=== PATIENT | female | born 1970 | race American Indian/Alaskan Native ===

== ENCOUNTER 2017-04-25 06:00 | Day surgery (SDC) | payer BC ==
--- NOTE | 2017-04-25 06:52 | Anesthesia Consultation ---
Anesthesia Consult and Med Hx Date of service: 04/25/17 - Pre-Operative Health Status Proposed Anesthetic Plan: General - Pulmonary Hx Smoking: No Hx Asthma: No - Cardiovascular System Hx Hypertension: No Hx Coronary Artery Disease: No - Central Nervous System Hx Psychiatric Problems: No - Gastrointestinal Hx Gastroesophageal Reflux Disease: No - Hematic Hx Anemia: No - Other Systems Hx Alcohol Use: Yes (OCCAS) Hx Substance Use: No Hx Cancer: No - Additional Comments Anesthesia Medical History Comments: hysterectomy
--- NOTE | 2017-04-25 06:52 | Anesthesia Day of Surgery ---
Anesthesia Day of Surgery - Day of Surgery Patient Examined: Yes Patient H&P Reviewed: Yes Patient is NPO: Yes
[2017-04-25] MEDS ORDERED: NACL BACTERIOSTATIC INFILTRATI ONE (06:54)
[2017-04-25] MEDS ORDERED: ANCEF/STERILE WATER 2 GM/20 ML IV NR (07:00)
[2017-04-25] MEDS ORDERED: ZOFRAN IV PRN (07:02)
[2017-04-25] MEDS ORDERED: PERCOCET 5/325 PO PRN (07:02)
[2017-04-25] MEDS ORDERED: DECADRON IV NR (07:02)
[2017-04-25 07:16] LABS: Hematocrit 37.2 % (30.3-42.9); Hemoglobin 12.4 gm/dl (10.1-14.3)
[2017-04-25] MEDS ORDERED: VERSED ONE (07:43)
[2017-04-25] MEDS ORDERED: DIPRIVAN 10 MG/ML IV ONE (07:43)
[2017-04-25] MEDS ORDERED: SUBLIMAZE ONE (07:44)
[2017-04-25] MEDS ORDERED: QUELICIN ONE (07:47)
[2017-04-25] MEDS ORDERED: ZEMURON IV ONE (07:47)
[2017-04-25] MEDS ORDERED: NACL 0.9% 1000 ML 1,000 ML IV SCH (08:00)
[2017-04-25] MEDS ORDERED: NEURONTIN PO NR (08:00)
[2017-04-25] MEDS ORDERED: PEPCID PO NR (08:00)
[2017-04-25] MEDS ORDERED: VERSED IV NR (08:00)
[2017-04-25] MEDS ORDERED: REGLAN ONE (08:55)
[2017-04-25] MEDS ORDERED: ZOFRAN ONE (08:55)
[2017-04-25] MEDS ORDERED: NEOSTIGMINE ONE (08:55)
[2017-04-25] MEDS ORDERED: ROBINUL ONE (08:55)
--- NOTE | 2017-04-25 09:02 | Post Anesthesia Evaluation ---
- Post Anesthesia Evaluation Patient Participated: Yes Airway Patent: Yes Stable Respiratory Function: Yes Nausea/Vomiting: No Temp > 96.8F: Yes Pain Manageable: Yes Adequeate Hydration: Yes Anesthesia Complications: No Block Receding Appropriately: Not Applicable Patient on Ventilator: No
[2017-04-25] MEDS: DILAUDID IV PRN ×2 (09:30→09:40)
[2017-04-25 10:27] VITALS: BP 116/76
--- NOTE | 2017-04-25 11:53 | Discharge Summary ---
Short Stay Discharge Plan Activity: other (Keep surgery site clean and dry; Bandage removal in 72hrs and may shower) Weight Bearing Status: Full Weight Bearing Diet: regular Wound: remove dressing (72hrs) Additional Instructions: FOLLOW INSTRUCTIONS GIVEN AT OFFICE PRIOR TO SURGERY. KEEP DRESSING DRY DIRECTED. MEDICATION DIRECTED. LAST DOSE OF PAIN MED AT HOSPITAL WAS DILAUDID AT 0940 AND PERCOCET AT 0945. CALL AND VERIFY APPOINTMENT FOR FOLLOWUP Follow up with: KETAN COTTO MD [Primary Care Provider] - 6 Weeks WORK,KAYLEY Holloway JR, MD [Staff Physician] - 7 Days Forms: [facility] [place] [facility]
--- NOTE | 2017-04-25 11:55 | Short Stay Summary ---
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 KEEP DRESSING DRY DIRECTED. MEDICATION DIRECTED. LAST DOSE OF PAIN MED AT HOSPITAL WAS DILAUDID AT 0940 AND PERCOCET AT 0945. CALL AND VERIFY APPOINTMENT FOR FOLLOWUP Follow up with: KAYLEY BARRAZA JR, MD [Staff Physician] - 7 Days KETAN COTTO MD [Primary Care Provider] - 6 Weeks Forms: [facility] [place] [facility]
--- NOTE | 2017-04-25 12:16 | Operative Report ---
PREOPERATIVE DIAGNOSIS: Benign neoplasm of left thigh. POSTOPERATIVE DIAGNOSIS: Benign neoplasm of left thigh. PROCEDURE: 1. Excision, benign neoplasm of left thigh greater than 4 cm. 2. Complex closure, left thigh, 7.5 cm. SURGEON: Avinash Sutherland MD DESCRIPTION OF PROCEDURE: The patient was brought to the operating room, placed on the table in supine position. Following administration of general anesthesia, the patient was placed into a prone position. The left thigh was prepped with Betadine solution, draped in usual sterile manner. A #15 blade scalpel was used to circumferentially incise skin surrounding and overlying the left thigh mass, deepened through subcutaneous fat using the electrocautery. Circumferential dissection was performed tumor with overlying skin was excised and sent to pathology as a specimen. Hemostasis controlled using electrocautery and closure was performed in layers using interrupted and running subcuticular 2-0 Monocryl sutures followed by Mastisol, Steri-Strips and sterile dressing. The patient tolerated the procedure well and returned to recovery room in stable condition. JOB# [id number] FTW/NTS
== END 2017-04-25 10:43 | disposition home or self-care (01) ==
LOC: OR 06:00
PROVIDERS: ATTEND Plastic Surgery
DX: D36.7 Benign neoplasm of other specified sites (principal); E66.9 Obesity, unspecified; Z68.30 Body mass index [BMI] 30.0-30.9, adult
CPT/HCPCS: 27337; 36415; 85014; 85018; 88304; J0330; J0690; J1100; J1170; J2250; J2405; J2704; J2710; J2765; J3010; J7030